=== PATIENT | male | born 1995 | race Caucasian/White ===

== ENCOUNTER 2023-04-05 01:26 | Emergency (ER) | payer OTHER ==
[2023-04-05 02:16] VITALS: BP 135/93; O2SAT 100
--- NOTE | 2023-04-05 02:29 | ED Physician Documentation ---
History of Present Illness - Stated complaint Stated Complaint: - Chief complaint Chief Complaint: General - History obtained from History obtained from: Patient - Additonal information Additional information: The pt presents to the ED with CC of testicular pain on both sides, but especially the right. It has been intermittent for the past few months, and does not seem to be triggered by anything in particular, though when he has it, it's worse if he lays down. The pt states he has noticed that sometimes when it happens, his testicle seems to "pull up" a little. However, if he tries to rel ax, the testicle seems to descend to its normal position. The pt states he is pain-free in between. The pain feels like an ache when he has it, and at worst, is about a 3-4/10. No swelling. No discoloration. No penile lesions or discharge. Pt is sexually monogamous. No h/o hernia. PD PAST MEDICAL HISTORY - Past Medical History Past Medical History: Yes : Other - Present Medications Home Medications: Ambulatory Orders Medication Instructions Recorded Confirmed Atomoxetine HCl [Strattera] 40 mg PO DAILY 04/05/23 04/05/23 Doxycycline Hyclate 100 mg PO BID 7 Days #14 cap 04/05/23 Meloxicam [Mobic] 7.5 mg PO BID 10 Days #20 tablet 04/05/23 - Allergies Allergies/Adverse Reactions: Allergies Allergy/AdvReac Type Severity Reaction Status Date / Time No Known Drug Allergies Allergy Verified 04/05/23 11:34 - Social History Does the pt smoke?: No Smoking Status: Never smoker - Immunizations Immunizations are current?: Yes - POLST Patient has POLST: No PD ED PE NORMAL - Vitals Vital signs reviewed: Yes - General General: Alert and oriented X 3, No acute distress, Well developed/nourished - HEENT HEENT: Atraumatic, PERRL - Neck Neck: Supple, no meningeal sign - Respiratory Respiratory: No respiratory distress - Abdomen Abdomen: Soft, Non tender, Non distended - Male Male : Other (NOrmal male genitalia, circumcised. Symmetrical testicles. No mass. No lesions. No bulge/defect.) - Derm Derm: Warm and dry - Extremities Extremities: No deformity - Neuro Neuro: Alert and oriented X 3 - Psych Psych: Normal mood, Normal affect Results - Vitals Vitals: Oxygen O2 Source Room air PD Medical Decision Making - ED course Complexity details: considered differential, d/w patient ED course: I d/w pt that the most helpful test would be US, but we don't have an US tech population health manager overnight. The pt is asymptomatic currently. I have d/w him that there are many potential causes of his sx, but the most concerning would be the possibility of partial torsion. The intermittent pain, though mild, along with the elevation of the testicle when it happens, raises this concern. The pt states he's moving to [facility] with the [facility] in 3 days, but will get follow-up [facility] when he gets there. I have advised him that if he gets the pain again, he should report to the ED without delay, as torsion is a surgical and time- sensitive emergency. Pt expresses understanding. Departure - Departure Disposition: 01 Home, Self Care Clinical Impression: Testicular pain, right Condition: Stable Instructions: ED Testicular Pain [facility] Comments: Your testicular exam here is normal. As we discussed, potential causes for fluctuating pain could be something simple like a hydrocele or varicocele, or this could represent a more serious situation, like a partial torsion that comes and goes. The test that would be most helpful in looking at your testicles would be an ultrasound. Unfortunately, we do not have ultrasound on-call at night, but you may return to the emergency department during the day on weekdays, between 8 AM and 3 PM and we should have ultrasound available then. It is very important that you establish with urology soon as possible after you arrive in [place]. If you develop severe and sudden onset testicular pain, please report to the emergency department without delay. Forms: PCP List Discharge Date/Time: 04/05/23 02:35
== END 2023-04-05 02:35 | disposition home or self-care (01) ==
LOC: ED 01:26
DX: N50.811 Right testicular pain (principal)
CPT/HCPCS: 99283; 99284

== ENCOUNTER 2023-04-05 11:29 | Emergency (ER) | payer OTHER ==
--- NOTE | 2023-04-05 13:01 | Ultrasound Report ---
PROCEDURE: Testicle w/Doppler INDICATIONS: testicular pain TECHNIQUE: Real-time scanning was performed of the scrotum and testicles, with image documentation. Color and p ulse Doppler interrogation was performed of both testicles. COMPARISON: None. FINDINGS: Right: Testicle is normal in size at 4.8 x 2.3 x 3.7 cm, and homogenous in echotexture. Epididymis is normal in overall size and morphology. Small hydrocele. No varicoceles. Overlying scrotal skin i s normal in thickness. Left: Testicle is normal in size at 4.7 x 2.4 x 3.3 cm, and homogeneous in echotexture. Small simple cyst noted in the left testicle. Epididymis is normal in overall size and morphology. No hydrocele. No varicoceles. Overlying scrotal skin is normal in thickness. Incidental 3 mm echogenic focus in the left epididymal head likely representing small calcification. Doppler: Color and pulse Doppler demonstrate normal and symmetric arterial flow in both testicles. IMPRESSION: Bilateral testicles without acute sonographic abnormalities. No evidence for testicular torsion or ac phyllis inflammatory process. Reviewed by: Lang Tapia MD on 04/05/2023 1:00 PM PST Approved by: Lang Tapia MD on 04/05/2023 1:00 PM PST Station ID: [id number]
--- NOTE | 2023-04-05 13:11 | ED Physician Documentation ---
PD HPI MALE - Stated complaint Stated Complaint: - Chief complaint Chief Complaint: General - History obtained from History obtained from: Patient - History of Present Illness Timing - onset: How many weeks ago (3) Timing - duration: Weeks (3) Timing - details: Gradual onset, Still present, Waxing and waning Associated symptoms: Testiclar pain. No: Dysuria, Hematuria, Genital sore / lesion, Scrotal swelling, Back pain PD HPI MALE CONTRIB FACTORS: Sexually active (just with his spouse.) Similar symptoms before: Has not had sx before Recently seen: Emergency Dept (seen last evening for this but no US available. To return today for it.) Review of Systems Constitutional: denies: Fever, Chills : denies: Dysuria, Discharge Skin: denies: Rash PD PAST MEDICAL HISTORY - Past Medical History Past Medical History: Yes : Other - Past Surgical History Past Surgical History: Yes - Present Medications Home Medications: Ambulatory Orders Medication Instructions Recorded Confirmed Atomoxetine HCl [Strattera] 40 mg PO DAILY 04/05/23 04/05/23 Doxycycline Hyclate 100 mg PO BID 7 Days #14 cap 04/05/23 Meloxicam [Mobic] 7.5 mg PO BID 10 Days #20 tablet 04/05/23 - Allergies Allergies/Adverse Reactions: Allergies Allergy/AdvReac Type Severity Reaction Status Date / Time No Known Drug Allergies Allergy Verified 04/05/23 11:34 - Social History Does the pt smoke?: No Smoking Status: Never smoker Does the pt drink ETOH?: No Does the pt have substance abuse?: No - Immunizations Immunizations are current?: Yes - POLST Patient has POLST: No PD ED PE NORMAL - Vitals Vital signs reviewed: Yes - General General: Alert and oriented X 3, No acute distress, Well developed/nourished - Abdomen Abdomen: Soft, Non tender - Male Male : Other (no inguinal hernias noted in standing position. Testicles with normal lie. Good cremaster reflex. No testicular massses nor tenderness. Lower epididymii tender both sides. Nolumps. ) - Back Back: No CVA TTP - Derm Derm: Normal color, Warm and dry Results - Vitals Vitals: Vital Signs - 24 hr 04/05/23 04/05/23 11:34 14:09 Temperature 36.8 C Heart Rate 88 65 Respiratory 16 16 Rate Blood Pressure 140/80 H 135/78 H O2 Saturation 100 99 Oxygen O2 Source Room air - Rads (name of study) scrotal US Relevant Findings:: Prelim report reviewed (no acute sonographic abnormality noted. Blood flow normal both testicles. ), EMP independent interpretation of test PD Medical Decision Making - ED course Complexity details: reviewed results, considered differential (no obvious findings on U/S. tender in lower epididymal area both sides. Consider epidiymitis since not other cause. Could be cremasteric muscle strain or such. NSAIDs but also abx. ), d/w patient Departure - Departure Disposition: Home, Self Care Clinical Impression: Testicular/scrotal pain Condition: Stable Record reviewed to determine appropriate education?: Yes Instructions: ED Epididymitis Prescriptions: Doxycycline Hyclate 100 mg PO BID 7 Days #14 cap Meloxicam [Mobic] 7.5 mg PO BID 10 Days #20 tablet Comments: Your ultrasound shows normal structure and blood flow through both testicles and no other structural abnormality in the scrotum. You do have some tenderness in the epididymal area. At this point we can presume some epididymal inflammation (epididymitis). This can be inflammatory or sometimes infectious. Other consideration would be some muscular irritation through the scrotum ("groin pull". No overly strenuous activity or lifting or such if possible over the next several days. I would go with a longer acting anti-inflammatory along with an antibiotic over the next 7 to 10 days and see if your symptoms are resolved. Add Tylenol every 4-6 hours if needed for pain as well. Follow-up with the [facility] or in particular urology if this has not resolved over the next week or so. Forms: PCP List Discharge Date/Time: 04/05/23 14:11
[2023-04-05] MEDS: DOXYCYCLINE 100 MG TABLET PO STA (13:50)
[2023-04-05] MEDS: NAPROXEN 250 MG TABLET PO STA (13:50)
[2023-04-05 14:19] VITALS: BP 135/78; O2SAT 99
== END 2023-04-05 14:11 | disposition home or self-care (01) ==
LOC: ED 11:29
DX: N50.811 Right testicular pain (principal); N50.812 Left testicular pain
CPT/HCPCS: 76870; 93975; 99283; 99284; A9270